=== PATIENT | male | born 1970 | race African-American/Black ===

== ENCOUNTER 2017-11-28 13:20 | Emergency (ER) | payer MEDICAID ==
[~2017-11-28] VITALS: Ht 172.7 cm; Wt 90.7 kg
[2017-11-28 13:32] VITALS: BP 137/81
[2017-11-28] MEDS ORDERED: LISI-420 PO (13:36)
--- NOTE | 2017-11-28 13:37 | NUR ---
AMBULATED TO ER BED 2
--- NOTE | 2017-11-28 13:43 | NUR ---
47 YO M BIB SELF PT BIB SELF C/O CONGESTION, COUGH X 1WEEK, AND NEEDS HTN MED REFILL. PT HAS THE BOTTLE WITH HIM FOR REFILL IF POSSIBLE. PT REPORTS A LOT OF YELLOW PHLEGM AND A PRODUCTIVE COUGH. PT HAS LACK OF INTEREST IN FOOD DUE TO IMPAIRED TASTE R/T CONGESTION. PT DENIES N/V, DENIES FEVER/CHILLS, DENIES ANY PAIN. PT A&O X 4. GCS 15. CMS INTACT. AMBULATORY W/ STEADY GAIT. RR EVEN AND UNLABORED. LUNGS BILAT CLEAR. ABD SOFT, NON-TENDER. ER MD REGALADO NOTIFIED. PT NEEDS MET. SAFETY PRECAUTIONS IN PLACE. WILL CONTINUE TO MONITOR.
--- NOTE | 2017-11-28 14:26 | NUR ---
Patient being evaluated by physician at bedside.
--- NOTE | 2017-11-28 14:57 | NUR ---
Patient discharged with v/s stable. Written and verbal after care instructions given and explained. Patient alert, oriented and verbalized understanding of instructions. Ambulatory with steady gait. All questions addressed prior to discharge. ID band removed. Patient advised to follow up with PMD. Rx of SARA GOINS FLONASE given. Patient educated on indication of medication including possible reaction and side effects. Opportunity to ask questions provided and answered.
[2017-11-28 14:58] VITALS: BP 135/79
== END 2017-11-28 14:57 | disposition home or self-care (01) ==
LOC: MED 13:20
DX: J06.9 Acute upper respiratory infection, unspecified (principal); Z76.0 Encounter for issue of repeat prescription; I10 Essential (primary) hypertension; Z79.899 Other long term (current) drug therapy
CPT/HCPCS: 71045; 99283; Q0092

== ENCOUNTER 2021-10-05 14:17 | Emergency (ER) | payer MEDICAID ==
[~2021-10-05] VITALS: Ht 172.7 cm; Wt 89.9 kg
[~2021-10-05 14:17] MED LIST: LISI-487 PO
[2021-10-05 14:25] VITALS: BP 134/89
--- NOTE | 2021-10-05 14:29 | NUR ---
PT AMBULATED TO ER BED 1 WITH A STEADY GAIT.
--- NOTE | 2021-10-05 14:33 | NUR ---
51 Y/O MALE C/O COUGH, BURNING EYES, FATIGUE, DIZZINESS, CHEST PAIN 4/10 TIGHTNESS X1 WEEK. PT WENT TO PCP X4 DAYS AGO AND WAS TOLD HE HAS THROAT/ INFECTION AND WAS GIVEN ABX BUT FEELS IT IS GETTING WORSE. DENIES FEVER/CHILLS. DENIES N/V/D. PMH:HTN NKA
--- NOTE | 2021-10-05 14:50 | NUR ---
MARILYN GODFREY AT PT BEDSIDE FOR FURTHER EVALUATION.
--- NOTE | 2021-10-05 14:59 | NUR ---
DATA OFFICER AT PT BEDSIDE.
[2021-10-05] MEDS ORDERED: ALBU0.0912 IH (15:42)
[2021-10-05] MEDS ORDERED: CODE5SYR5 PO (15:42)
[2021-10-05 16:17] VITALS: BP 134/89
--- NOTE | 2021-10-05 16:18 | NUR ---
Patient discharged with v/s stable. Written and verbal after care instructions given FOR BRONCHITIS and explained. Patient alert, oriented and verbalized understanding of instructions. Ambulatory with steady gait. All questions addressed prior to discharge. ID band removed. Patient advised to follow up with PMD. Rx of ALBUTEROL AND PROMETHAZINE given. Patient educated on indication of medication including possible reaction and side effects. Opportunity to ask questions provided and answered.
== END 2021-10-05 16:18 | disposition home or self-care (01) ==
LOC: MED 14:17
DX: J40 Bronchitis, not specified as acute or chronic (principal); I10 Essential (primary) hypertension; Z79.899 Other long term (current) drug therapy
CPT/HCPCS: 71045; 99283